=== PATIENT | female | born 1970 | race Caucasian/White ===

== ENCOUNTER 2022-06-15 08:05 | Day surgery (SDC) | payer OTHER ==
[~2022-06-15] VITALS: Ht 152.4 cm; Wt 63.7 kg
[2022-06-15] MEDS ORDERED: Amlodipine Bes2.5 MG (08:21)
[2022-06-15] MEDS ORDERED: TRULICITY1.5 MG/0.1 (08:22)
[2022-06-15] MEDS ORDERED: METF500 (08:22)
[2022-06-15] MEDS ORDERED: CONEST.9 (08:22)
[2022-06-15] MEDS ORDERED: LOSA50 (08:22)
[2022-06-15] MEDS ORDERED: ZOCOR20 MG (08:22)
[2022-06-15] MEDS ORDERED: ERGO400 (08:23)
--- NOTE | 2022-06-15 08:49 | NUR ---
06/15/22 0849 Leslie Whipple TWO ATTEMPTS AT IV. FIRST ATTEMPT IN RIGHT HAND BY MA UNABLE TO ADVANCE NEEDLE INTO VEIN. SECOND ATTEMPT BY MA IN LEFT HAND SUCESSFUL.
== END 2022-06-15 10:30 | disposition home or self-care (01) ==
LOC: ORSCSDS 08:05
PROVIDERS: Student in an Organized Health Care Education/Training Program
PROC: 0DBN8ZX Excision of Sigmoid Colon, Via Natural or Artificial Opening Endoscopic, Diagnostic (ICD-10-PCS; principal; 2022-06-15 09:15)
DX: Z12.11 Encounter for screening for malignant neoplasm of colon (principal); K63.5 Polyp of colon; I10 Essential (primary) hypertension; E11.9 Type 2 diabetes mellitus without complications; Z79.84 Long term (current) use of oral hypoglycemic drugs; Z79.899 Other long term (current) drug therapy
CPT/HCPCS: 82947; 88305; J2704; J7120